=== PATIENT | female | born 1995 | race Caucasian/White ===

== ENCOUNTER → 2021-05-19 | Outpatient (CLI) | payer BC ==
--- NOTE | 2021-05-19 14:36 | CT ---
EXAMINATION TYPE: CT elbow RT wo con DATE OF EXAM: 05/19/2021 COMPARISON: None HISTORY: Rt elbow dislocation, coronoid fracture CT DLP: 108.4 mGycm Automated exposure control for dose reduction was used. Contrast: None Technique: Axial images 2 mm thick sections. Reconstructed images in the coronal and sagittal plane. Three-D reconstructed images performed on a separate computerized technologist are reviewed. FINDINGS: There is a tiny free fragment medial to the olecranon and the joint space. Series 3 image 36. No significant joint effusion is identified. Soft tissue signal appears normal. Radius aligns normally with the humerus. Humerus appears intact. Rather A comminuted avulsion from the coracoid. In the axial plane this appears to be comminuted. This is li edison rotated in the sagittal plane. IMPRESSION: 1. COMMINUTED CORACOID FRACTURE. THE FRACTURE FRAGMENTS MAY BE ROTATED IN RELATION TO THE DONOR SITE. 2. THERE MAY BE A FREE FRAGMENT ADJACENT TO THE OLECRANON WITHIN THE JOINT SPACE.
== END | disposition home or self-care (01) ==
LOC: RADCTMAIN 07:35
PROVIDERS: ATTEND Orthopaedic Surgery
DX: S52.041A Displaced fracture of coronoid process of right ulna, initial encounter for closed fracture (principal)